=== PATIENT | male | born 1960 | race Caucasian/White ===

== ENCOUNTER 2020-01-19 07:09 | Inpatient (IN) ==
[2020-01-19] MEDS ORDERED: CeFAZolin Syr 2,000MG/20 ML 2,000 MG/20 ML SYRINGE IVPB ONE (08:42)
[2020-01-19] MEDS ORDERED: Ringers Solution, Lactated 1,000 ML IVC SCH (08:45)
[2020-01-19] MEDS ORDERED: *HR* FentaNYL (PF) 100 MCG/2 ML VIAL ONE ×2 (08:46→10:18)
[2020-01-19] MEDS ORDERED: *HR* Rocuronium Bromide 50 MG/5 ML VIAL ONE (08:46)
[2020-01-19] MEDS ORDERED: *HR* Succinylcholine 200 MG/10 ML VIAL IVP ONE (08:46)
[2020-01-19] MEDS ORDERED: Ondansetron 4 MG/2 ML VIAL ONE (08:46)
[2020-01-19] MEDS ORDERED: *HR* Midazolam HCl 2 MG/2 ML VIAL ONE (08:46)
[2020-01-19] MEDS ORDERED: Lidocaine -MPF 2% 2 ML VIAL ONE ×2 (08:46→13:57)
[2020-01-19] MEDS ORDERED: *HR* Propofol 200 MG/20 ML VIAL IVP ONE (08:46)
[2020-01-19] MEDS ORDERED: Vancomycin 1,000 MG VIAL ONE (08:56)
[2020-01-19] MEDS ORDERED: Heparin 1,000 UNITS/500 mL 500 ML ONE ×2 (08:56→09:08)
[2020-01-19] MEDS ORDERED: *HR* Vasopressin 20 UNIT/ML VIAL ONE (09:01)
[2020-01-19] MEDS ORDERED: *HR* OxyCODONE Immed Rel 5 MG TABLET PO PRN ×2 (09:04→15:21)
[2020-01-19] MEDS ORDERED: Ondansetron 4 MG/2 ML VIAL IVP ONE (09:04)
[2020-01-19] MEDS ORDERED: Vancomycin 1,000 MG, Sodium Chloride IRRigation 1,000 ML IR ONE (09:40)
[2020-01-19] MEDS ORDERED: *HR* Labetalol 20 MG/4 ML SYRINGE IVP ONE (10:26)
[2020-01-19] MEDS ORDERED: NiCARdipine 2.5 MG/10 ML Syringe IVPB ONE (10:40)
[2020-01-19] MEDS ORDERED: Dexamethasone 4 MG/ML VIAL ONE (10:50)
[2020-01-19] MEDS ORDERED: *HR* Heparin 5,000 UNIT/ML VIAL ONE ×2 (11:12→11:31)
[2020-01-19] MEDS ORDERED: Lidocaine HCL 4 ML Topical Solution (Laryng-O-Jet Kit Sterile Pak) TP ONE (13:54)
[2020-01-19] MEDS: *HR* HYDROmorphone PF 0.5 MG/0.5 ML SYRINGE IVP PRN ×2 (14:35→14:55)
[2020-01-19] MEDS ORDERED: 0.9 % Sodium Chloride 500 ML ONE (14:53)
[2020-01-19] MEDS ORDERED: Acetaminophen 325 MG TABLET PO PRN ×2 (15:21)
[2020-01-19] MEDS ORDERED: Naloxone 0.4 MG/ML INJ IVP PRN (15:21)
[2020-01-19] MEDS ORDERED: 0.9 % Sodium Chloride 1,000 ML IVC SCH (15:21)
[2020-01-19] MEDS ORDERED: Dextrose Gel 15 GM/37.5 ML TUBE PO PRN ×2 (15:42)
[2020-01-19] MEDS ORDERED: *HR* Dextrose 50 % in Water (Syg) 50 ML SYRINGE IVP PRN (15:42)
[2020-01-19] MEDS ORDERED: D5% in Water 1,000 ML IVC PRN (15:42)
[2020-01-19] MEDS ORDERED: Insulin LISPRO 300 UNITS/3 ML VIAL SQ SCH ×2 (16:30→21:00)
[2020-01-19] MEDS: ceFAZolin 2,000 MG in 0.9 % Sodium Chloride 100 ML IVPB SCH ×2 (16:44→23:33)
[2020-01-19] MEDS: *HR* HYDROcodone/Acet 5/325 mg TABLET PO PRN (17:46)
[2020-01-19] MEDS: *HR* OxyCODONE Immed Rel 5 MG TABLET PO PRN (19:12)
[2020-01-20] MEDS: *HR* OxyCODONE Immed Rel 5 MG TABLET PO PRN ×2 (03:14→11:26)
[2020-01-20 04:47] LABS: Basophils % 0.2 %; Hematocrit 31.8 % (37.5-50.1); Hemoglobin 10.1 g/dL (12.9-16.9); Immature Granulocytes % 0.4 % (0-4); Lymphocytes # 0.9 K/mcL (0.6-4.6); Mean Corpuscular HGB Conc 31.8 g/dL (31.6-35.5); Mean Corpuscular Hemoglobin 30.1 pg (28.0-33.3); Mean Corpuscular Volume 94.6 fL (83.0-100.0); Mean Platelet Volume 9.4 fL (9.4-12.4); Monocytes # 0.8 K/mcL (0.0-1.3); Monocytes % 6.7 %; Neutrophils # 9.9 K/mcL (1.6-8.9); Platelet Count 389 K/mcL (140-400); Red Blood Count 3.36 M/mcL (4.19-5.50); Red Cell Distribution Width 13.2 % (11.5-14.5); Segmented Neutrophils % 84.7 %; White Blood Count 11.7 K/mcL (4.3-11.1)
[2020-01-20 05:09] LABS: BUN/Creatinine Ratio 18 (6-26); Blood Urea Nitrogen 22 mg/dL (6-20); Calcium 9.6 mg/dL (8.6-10.3); Carbon Dioxide 26 mEq/L (23-29); Chloride 102 mEq/L (98-107); Glucose 191 mg/dL (70-105); Osmolality,Calculated 290 (280-300); Potassium 4.6 mEq/L (3.5-5.1); Sodium 136 mEq/L (136-145); eGFR For African Americans > 60 (> 60); eGFR For Non-African Americans > 60 (> 60)
[2020-01-20] MEDS ORDERED: *HR* Heparin 5,000 UNIT/ML VIAL SQ SCH ×2 (06:00)
[2020-01-20] MEDS: *HR* HYDROcodone/Acet 5/325 mg TABLET PO PRN (07:40)
[2020-01-20 07:57] VITALS: BP 159/76
[2020-01-20] MEDS ORDERED: Aspirin 81 MG TAB.CHEW PO SCH (09:00)
[2020-01-20] MEDS ORDERED: Multivit/Ca/Min/Fe/FA 1 TAB TABLET PO SCH (09:00)
[2020-01-20] MEDS ORDERED: hydroCHLOROthiazide 25 MG TABLET PO SCH (09:00)
[2020-01-20] MEDS ORDERED: lisinopriL 20 MG TABLET PO SCH (09:00)
== END 2020-01-20 12:05 | disposition home or self-care (01) | DRG 272 ==
LOC: SAMDAY 07:09 → 3NENU 15:47
PROVIDERS: ADMIT Surgery; ATTEND Surgery
PROC: VASFFBG (ICD-10-PCS; 2020-01-19 09:40)

== ENCOUNTER 2022-02-08 11:42 | Inpatient (IN) ==
[2022-02-08] MEDS ORDERED: Ondansetron 4 MG/2 ML VIAL IVP PRN (22:34)
[2022-02-08] MEDS ORDERED: Naloxone 0.4 MG/ML INJ IVP PRN (22:34)
[2022-02-08] MEDS ORDERED: Acetaminophen 325 MG TABLET PO PRN (22:34)
[2022-02-09 00:46] LABS: Bilirubin,Urine Negative (Negative); Blood,Urine Negative (Negative); Clarity,Urine Clear (Clear); Color,Urine Light-Yellow (Yellow); Glucose,Urine (UA) Normal (Normal); Ketones,Urine 10 mg/dL (Negative); Leukocyte Esterase,Urine Negative (Negative); Nitrite,Urine Negative (Negative); PH,Urine 5.5 pH Units (5.0-8.0); Protein,Urine Negative (Neg-Trace); Specific Gravity,Urine 1.013 (1.010-1.025); Urobilinogen,Urine Normal (Normal)
[2022-02-09] MEDS ORDERED: Dextrose 4 GM Chewable Tablets PO PRN ×2 (00:50)
[2022-02-09] MEDS ORDERED: D5% in Water 1,000 ML IVC PRN (00:50)
[2022-02-09] MEDS ORDERED: *HR* Dextrose 50 % in Water (Syg) 50 ML SYRINGE IVP PRN (00:50)
[2022-02-09 03:26] LABS: Basophils % 0.5 %; Eosinophils # 0.2 K/mcL (0.0-0.6); Eosinophils % 1.9 %; Hematocrit 29.4 % (37.5-50.1); Hemoglobin 9.2 g/dL (12.9-16.9); Immature Granulocytes % 0.4 % (0-4); Lymphocytes # 1.7 K/mcL (0.6-4.6); Lymphocytes % 19.6 %; Mean Corpuscular HGB Conc 31.3 g/dL (31.6-35.5); Mean Corpuscular Volume 95.8 fL (83.0-100.0); Mean Platelet Volume 9.7 fL (9.4-12.4); Monocytes # 0.7 K/mcL (0.0-1.3); Monocytes % 8.1 %; Neutrophils # 5.9 K/mcL (1.6-8.9); Platelet Count 309 K/mcL (140-400); Red Blood Count 3.07 M/mcL (4.19-5.50); Red Cell Distribution Width 13.9 % (11.5-14.5); Segmented Neutrophils % 69.5 %; White Blood Count 8.5 K/mcL (4.3-11.1)
[2022-02-09 03:33] LABS: INR 1.2; Prothrombin Time 13.8 Seconds (9.4-12.1)
[2022-02-09 03:42] LABS: BUN/Creatinine Ratio 16 (6-26); Blood Urea Nitrogen 19 mg/dL (6-20); C-Reactive Protein 10 mg/L (Less than 10); Calcium 8.7 mg/dL (8.6-10.3); Carbon Dioxide 24 mEq/L (23-29); Chloride 109 mEq/L (98-107); Glucose 117 mg/dL (70-105); Magnesium 1.5 mg/dL (1.6-2.6); Osmolality,Calculated 291 (280-300); Phosphorous 2.5 mg/dL (2.7-4.5); Potassium 4.3 mEq/L (3.5-5.1); Sodium 139 mEq/L (136-145); eGFR For African Americans > 60 (> 60); eGFR For Non-African Americans > 60 (> 60)
[2022-02-09] MEDS: Insulin LISPRO 300 UNITS/3 ML VIAL SUBQ SCH ×5 (05:58→17:03)
[2022-02-09] MEDS: Pantoprazole 40 MG VIAL IVP SCH ×2 (06:14→17:04)
[2022-02-09] MEDS ORDERED: tiZANidine 4 MG TABLET PO PRN (14:49)
[2022-02-09] MEDS: Pregabalin 75 MG CAPSULE PO SCH (20:17)
[2022-02-09] MEDS: Magnesium Oxide 400 MG TABLET PO SCH (20:17)
[2022-02-10 03:05] LABS: Hematocrit 30.3 % (37.5-50.1); Hemoglobin 9.8 g/dL (12.9-16.9); Mean Corpuscular HGB Conc 32.3 g/dL (31.6-35.5); Mean Corpuscular Hemoglobin 30.5 pg (28.0-33.3); Mean Corpuscular Volume 94.4 fL (83.0-100.0); Mean Platelet Volume 9.7 fL (9.4-12.4); Platelet Count 325 K/mcL (140-400); Red Blood Count 3.21 M/mcL (4.19-5.50); Red Cell Distribution Width 13.8 % (11.5-14.5); White Blood Count 7.1 K/mcL (4.3-11.1)
[2022-02-10 03:14] LABS: BUN/Creatinine Ratio 12 (6-26); Blood Urea Nitrogen 15 mg/dL (6-20); Calcium 8.9 mg/dL (8.6-10.3); Carbon Dioxide 27 mEq/L (23-29); Chloride 108 mEq/L (98-107); Glucose 130 mg/dL (70-105); Osmolality,Calculated 295 (280-300); Potassium 4.1 mEq/L (3.5-5.1); Sodium 141 mEq/L (136-145); eGFR For African Americans > 60 (> 60); eGFR For Non-African Americans 59 (> 60)
[2022-02-10] MEDS: Pantoprazole 40 MG VIAL IVP SCH ×2 (06:18→19:18)
[2022-02-10] MEDS: Insulin LISPRO 300 UNITS/3 ML VIAL SUBQ SCH ×2 (13:19→17:48)
[2022-02-10] MEDS: Isosorbide MONOnitrate (24 HR) 30 MG TAB.ER.24H PO SCH (13:27)
[2022-02-10] MEDS: NIFEdipine XL (24 HR) 30 MG TAB.ER.24 PO SCH (13:28)
[2022-02-10] MEDS: Pregabalin 75 MG CAPSULE PO SCH (19:40)
[2022-02-10] MEDS: Magnesium Oxide 400 MG TABLET PO SCH (19:41)
[2022-02-11 05:13] LABS: Hematocrit 29.5 % (37.5-50.1); Hemoglobin 9.4 g/dL (12.9-16.9); Mean Corpuscular HGB Conc 31.9 g/dL (31.6-35.5); Mean Corpuscular Hemoglobin 30.4 pg (28.0-33.3); Mean Corpuscular Volume 95.5 fL (83.0-100.0); Mean Platelet Volume 10.1 fL (9.4-12.4); Platelet Count 325 K/mcL (140-400); Red Blood Count 3.09 M/mcL (4.19-5.50); Red Cell Distribution Width 14.1 % (11.5-14.5)
[2022-02-11] MEDS: Pantoprazole 40 MG VIAL IVP SCH (05:20)
[2022-02-11] MEDS ORDERED: Metoclopramide 10 MG/2 ML VIAL IVP ONE (06:00)
[2022-02-11 06:55] VITALS: TEMP 98.4
[2022-02-11] MEDS: Insulin LISPRO 300 UNITS/3 ML VIAL SUBQ SCH ×3 (07:07→11:44)
[2022-02-11] MEDS: Magnesium Oxide 400 MG TABLET PO SCH (07:08)
[2022-02-11] MEDS: Isosorbide MONOnitrate (24 HR) 30 MG TAB.ER.24H PO SCH (07:35)
[2022-02-11] MEDS: NIFEdipine XL (24 HR) 30 MG TAB.ER.24 PO SCH (07:35)
[2022-02-11] MEDS ORDERED: *HR* Propofol 200 MG/20 ML VIAL IVP ONE (13:03)
[2022-02-11] MEDS ORDERED: Lidocaine -MPF 2% 5 ML VIAL ONE (13:03)
[2022-02-11 13:13] VITALS: BP 134/70; PULSE 78; O2SAT 97
== END 2022-02-11 17:30 | disposition home or self-care (01) | DRG 378 ==
LOC: 3NENU → SUATTDRO 21:44
PROVIDERS: ADMIT Pharmacist; ATTEND Student in an Organized Health Care Education/Training Program
PROC: ENDOEBX (2022-02-11 13:45)